=== PATIENT | male | born 1960 | race African-American/Black ===

== ENCOUNTER 2017-08-02 09:45 | Emergency (ER) | payer BC ==
[~2017-08-02] VITALS: Ht 180.3 cm; Wt 101.6 kg
[2017-08-02 09:55] VITALS: BP_SYST 145
[2017-08-02] MEDS ORDERED: KETOROLAC TROMETHAMINE 60 MG/2 ML VIAL IM ONE (10:15)
[2017-08-02 10:32] LABS: EOSINOPHILS # (AUTO) 0.1 K/uL (0.0-0.4); MONOCYTES # (AUTO) 0.3 K/uL (0.0-1.0)
[2017-08-02 10:35] LABS: BASOPHILS # (AUTO) 0.2 K/uL (0.0-0.2); BASOPHILS % (AUTO) 2.8 % (0.0-2.0); EOSINOPHILS % (AUTO) 1.4 % (0.0-4.0); HEMATOCRIT 43.1 % (36-54); LYMPHOCYTES # (AUTO) 1.3 K/uL (1.0-5.5); LYMPHOCYTES % (AUTO) 19.2 % (20.5-51.5); MEAN CORPUSCULAR HEMOGLOBIN 28 pg (27-31); MEAN CORPUSCULAR HGB CONC 33 % (32-36); MEAN CORPUSCULAR VOLUME 86 fL (79.0-98.0); MONOCYTES % (AUTO) 4.9 % (1.7-9.3); NEUTROPHILS # (AUTO) 5.1 K/uL (1.8-7.7); NEUTROPHILS % (AUTO) 71.7 % (40.0-70.0); PLATELET COUNT (AUTO) 162 K/uL (130-430); RED CELL DISTRIBUTION WIDTH 14.4 % (9.0-15.0)
[2017-08-02 10:44] LABS: ANION GAP 6 (5-15); CALCIUM 9.7 mg/dL (8.4-11.0); CHLORIDE 106 mmol/L (98-107); CREATININE 1.13 mg/dL (0.55-1.30); GLUCOSE 115 mg/dL (70-99); POTASSIUM 3.8 mmol/L (3.5-5.1); SODIUM SERUM 143 mmol/L (136-145); UREA NITROGEN, BLOOD 13 mg/dL (8-21)
[2017-08-02 10:49] LABS: GFR AFRICAN AMERICAN 87 mL/min (>90)
[2017-08-02 10:53] LABS: ALANINE AMINOTRANSFERASE 23 U/L (12-78); ALBUMIN 4.1 g/dL (3.4-4.8); ASPARTATE AMINOTRANSFERASE 16 U/L (10-37); TOTAL BILIRUBIN 0.5 mg/dL (0.0-1.0)
[2017-08-02] MEDS ORDERED: HYDROcodone/ACETAMIN 5-325 MG TAB (NORCO/ VICODIN) PO ONE (11:45)
[2017-08-02 11:48] LABS: BILIRUBIN,URINE NEGATIVE (NEGATIVE); BLOOD, URINE NEGATIVE (NEGATIVE); CLARITY/URINE CLEAR (CLEAR); COLOR,URINE YELLOW (YELLOW); GLUCOSE,URINE NEGATIVE (NEGATIVE); KETONES,URINE NEGATIVE (NEGATIVE); LEUKOCYTE ESTERASE ,URINE NEGATIVE (NEGATIVE); NITRITE, URINE NEGATIVE (NEGATIVE); PH,URINE 5.5 (5.0-8.0); PROTEIN URINE NEGATIVE (NEGATIVE); UROBILINOGEN,URINE 0.2 (0.2-1.0)
[2017-08-02 12:24] VITALS: BP_SYST 132
== END 2017-08-02 12:20 | disposition home or self-care (01) ==
LOC: SED 09:45
DX: M54.30 Sciatica, unspecified side (principal); R03.0 Elevated blood-pressure reading, without diagnosis of hypertension; Z90.89 Acquired absence of other organs
CPT/HCPCS: 36415; 80053; 81003; 84484; 85025; 96372; 99284; J1885

== ENCOUNTER 2023-07-27 15:25 | Inpatient (IN) | payer BC ==
[~2023-07-27] VITALS: Ht 180.3 cm; Wt 99.8 kg
[2023-07-27 15:34] VITALS: BP_SYST 130; PULSE 94; RESP 18; TEMP 98.5; O2SAT 98
[2023-07-27 16:40] LABS: BILIRUBIN,URINE NEGATIVE (NEGATIVE); BLOOD, URINE NEGATIVE (NEGATIVE); CLARITY/URINE SL CLOUDY (CLEAR); COLOR,URINE YELLOW (YELLOW); GLUCOSE,URINE NEGATIVE (NEGATIVE); KETONES,URINE TRACE (NEGATIVE); LEUKOCYTE ESTERASE ,URINE NEGATIVE (NEGATIVE); NITRITE, URINE NEGATIVE (NEGATIVE); PROTEIN URINE NEGATIVE (NEGATIVE)
[2023-07-27 16:46] LABS: BASOPHILS % (AUTO) 0.7 % (0.0-2.0); EOSINOPHILS # (AUTO) 0.3 K/uL (0.0-0.4); HEMATOCRIT 36.7 % (36-54); HEMOGLOBIN 12.2 g/dL (14.0-18.0); LYMPHOCYTES # (AUTO) 1.5 K/uL (1.0-5.5); LYMPHOCYTES % (AUTO) 27.4 % (20.5-51.5); MEAN CORPUSCULAR HEMOGLOBIN 29 pg (27-31); MEAN CORPUSCULAR HGB CONC 33 % (32-36); MEAN CORPUSCULAR VOLUME 85 fL (79.0-98.0); MONOCYTES # (AUTO) 0.5 K/uL (0.0-1.0); MONOCYTES % (AUTO) 8.6 % (1.7-9.3); NEUTROPHILS # (AUTO) 3.2 K/uL (1.8-7.7); NEUTROPHILS % (AUTO) 58.3 % (40.0-70.0); PLATELET COUNT (AUTO) 149 K/uL (130-430); RED BLOOD CELL COUNT(AUTO) 4.29 MIL/uL (4.2-6.2); RED CELL DISTRIBUTION WIDTH 16.1 % (9.0-15.0); WHITE BLOOD COUNT (AUTO) 5.5 K/uL (4.8-10.8)
[2023-07-27 17:00] LABS: BARBITURATE, URINE NEGATIVE (NEG <=200); BENZODIAZEPINE, URINE NEGATIVE (NEG <=150); CANNABINOID, URINE NEGATIVE (NEG <=50); COCAINE, URINE NEGATIVE (NEG <=150); METHAMPHETAMINES SCREEN,URINE NEGATIVE (NEG <=500); OPIATE, URINE NEGATIVE (NEG <=100); PHENCYCLIDINE SCREEN,URINE NEGATIVE (NEG <=25); URINE AMPHETAMINE NEGATIVE (NEG <=500); URINE METHADONE NEGATIVE (NEG <=200); URINE OXYCODONE SCREEN NEGATIVE (NEG <=100)
[2023-07-27 17:01] LABS: UR TRICYCLIC ANTIDEPRESSANTS POSITIVE (NEG <=300)
[2023-07-27 17:02] LABS: PROTHROMBIN TIME 10.7 SECS (9.5-12.5)
[2023-07-27 17:04] LABS: ALANINE AMINOTRANSFERASE 26 U/L (12-78); ALBUMIN 3.5 g/dL (3.4-4.8); ANION GAP 9 (5-15); ASPARTATE AMINOTRANSFERASE 27 U/L (10-37); CALCIUM 8.5 mg/dL (8.4-11.0); CARBON DIOXIDE 24 mmol/L (23-29); CHLORIDE 109 mmol/L (98-107); CREATININE 1.36 mg/dL (0.55-1.30); GFR AFRICAN AMERICAN 69 mL/min (>90); GLUCOSE 97 mg/dL (74-106); SODIUM SERUM 142 mmol/L (136-145); TOTAL BILIRUBIN 0.5 mg/dL (0.0-1.0); TOTAL PROTEIN, SERUM 7.8 g/dL (6.4-8.3); UREA NITROGEN, BLOOD 11 mg/dL (8-21)
[2023-07-27 17:06] LABS: GFR NON AFRICAN-AMERICAN 57 mL/min (>90)
[2023-07-27 17:07] LABS: BILIRUBIN,DIRECT 0.1 mg/dL (0.0-0.3)
[2023-07-27 17:09] LABS: ALCOHOL, BLOOD < 3 mg/dL (<10)
[2023-07-27] MEDS ORDERED: TOPI50CA5 PO (17:12)
[2023-07-27] MEDS ORDERED: ZOLP6.2539 PO (17:12)
[2023-07-27] MEDS ORDERED: PREG100C55 PO (17:12)
[2023-07-27] MEDS ORDERED: AMLO5TAB92 PO (17:12)
[2023-07-27] MEDS ORDERED: TRAM100T39 PO (17:12)
[2023-07-27] MEDS ORDERED: CITA20TA16 PO (17:12)
[2023-07-27] MEDS ORDERED: BACL10TA PO (17:12)
[2023-07-27] MEDS ORDERED: CITA10TA14 PO (17:12)
[2023-07-27] MEDS ORDERED: iohexoL 350 mgI/mL, 100 ML INFUS..BTL IV ONE (18:53)
[2023-07-27] MEDS: NACL 0.9% 1,000 ML IV ONE (19:44)
[2023-07-27] MEDS: DIPHTH,PERTUSS(ACELL),TET VAC 0.5 ML VIAL (Tdap) I.M. ONE (19:54)
[2023-07-27 23:53] VITALS: BP_SYST 138; PULSE 79; RESP 18; TEMP 98.4; O2SAT 99
[2023-07-28 00:30] VITALS: BP_SYST 116; PULSE 81; RESP 18; TEMP 98.1; O2SAT 98
[2023-07-28] MEDS: PREGABALIN 25 MG CAPSULE (LYRICA) PO SCH (00:55)
[2023-07-28] MEDS: NACL 0.9% 1,000 ML IV SCH (00:55)
[2023-07-28] MEDS: ZOLPIDEM TARTRATE 5 MG TABLET PO SCH (00:55)
[2023-07-28] MEDS: traMADol HCL HCL 50 MG TABLET (ULTRAM) PO PRN ×2 (00:57→13:19)
[2023-07-28 08:00] VITALS: BP_SYST 129; PULSE 78; RESP 16; TEMP 97.6; O2SAT 97
[2023-07-28] MEDS ORDERED: LORazepam 2 MG/ML VIAL IVP PRN (10:30)
[2023-07-28] MEDS ORDERED: ACETAMINOPHEN 325 MG TABLET PO PRN ×2 (10:30→10:45)
[2023-07-28] MEDS ORDERED: NALOXONE HCL 0.4 MG/ML AMP (NARCAN) IVP PRN (10:30)
[2023-07-28] MEDS ORDERED: ONDANSETRON HCL 4 MG/2 ML VIAL IVP PRN (10:30)
[2023-07-28 10:38] LABS: BASOPHILS % (AUTO) 0.7 % (0.0-2.0); EOSINOPHILS # (AUTO) 0.4 K/uL (0.0-0.4); EOSINOPHILS % (AUTO) 8.7 % (0.0-4.0); HEMATOCRIT 35.8 % (36-54); HEMOGLOBIN 11.7 g/dL (14.0-18.0); LYMPHOCYTES # (AUTO) 1.3 K/uL (1.0-5.5); LYMPHOCYTES % (AUTO) 30.6 % (20.5-51.5); MEAN CORPUSCULAR HEMOGLOBIN 28 pg (27-31); MEAN CORPUSCULAR HGB CONC 33 % (32-36); MEAN CORPUSCULAR VOLUME 86 fL (79.0-98.0); MONOCYTES # (AUTO) 0.4 K/uL (0.0-1.0); MONOCYTES % (AUTO) 10.8 % (1.7-9.3); NEUTROPHILS # (AUTO) 2.1 K/uL (1.8-7.7); NEUTROPHILS % (AUTO) 49.2 % (40.0-70.0); PLATELET COUNT (AUTO) 134 K/uL (130-430); RED BLOOD CELL COUNT(AUTO) 4.15 MIL/uL (4.2-6.2); RED CELL DISTRIBUTION WIDTH 16.1 % (9.0-15.0); WHITE BLOOD COUNT (AUTO) 4.2 K/uL (4.8-10.8)
[2023-07-28 10:58] LABS: CREATININE 1.17 mg/dL (0.55-1.30); POTASSIUM 3.7 mmol/L (3.5-5.1); TOTAL BILIRUBIN 0.5 mg/dL (0.0-1.0); TOTAL PROTEIN, SERUM 7.2 g/dL (6.4-8.3)
[2023-07-28] MEDS: CITALOPRAM HYDROBROMIDE 20 MG TABLET PO ONE (12:11)
[2023-07-28] MEDS: BACLOFEN 10 MG TABLET PO SCH (15:22)
[2023-07-28] MEDS: NORMAL SALINE 5 ML DISP.SYRIN IVF SCH (15:23)
[2023-07-28] MEDS: HYDROcodone/ACETAMIN 5-325 MG TAB (NORCO/ VICODIN) PO PRN (17:54)
[2023-07-28 20:05] VITALS: BP_SYST 131; PULSE 72; RESP 16; TEMP 98.2; O2SAT 100
[2023-07-28] MEDS ORDERED: CITALOPRAM HYDROBROMIDE PO SCH (21:00)
[2023-07-28] MEDS: amLODIPine BESYLATE 5 MG TABLET PO SCH (21:22)
[2023-07-29 00:05] VITALS: BP_SYST 103; PULSE 75; RESP 16; TEMP 97.7; O2SAT 98
[2023-07-29 05:41] LABS: BASOPHILS % (AUTO) 0.7 % (0.0-2.0); EOSINOPHILS # (AUTO) 0.4 K/uL (0.0-0.4); EOSINOPHILS % (AUTO) 9.3 % (0.0-4.0); HEMATOCRIT 36.6 % (36-54); LYMPHOCYTES # (AUTO) 1.3 K/uL (1.0-5.5); LYMPHOCYTES % (AUTO) 33.1 % (20.5-51.5); MEAN CORPUSCULAR HEMOGLOBIN 28 pg (27-31); MEAN CORPUSCULAR HGB CONC 33 % (32-36); MEAN CORPUSCULAR VOLUME 85 fL (79.0-98.0); MONOCYTES # (AUTO) 0.4 K/uL (0.0-1.0); MONOCYTES % (AUTO) 9.1 % (1.7-9.3); NEUTROPHILS # (AUTO) 1.9 K/uL (1.8-7.7); NEUTROPHILS % (AUTO) 47.8 % (40.0-70.0); PLATELET COUNT (AUTO) 150 K/uL (130-430); RED BLOOD CELL COUNT(AUTO) 4.28 MIL/uL (4.2-6.2); RED CELL DISTRIBUTION WIDTH 16.2 % (9.0-15.0)
[2023-07-29 06:23] LABS: CALCIUM 8.7 mg/dL (8.4-11.0); CREATININE 1.15 mg/dL (0.55-1.30); POTASSIUM 3.7 mmol/L (3.5-5.1)
[2023-07-29 08:08] VITALS: O2SAT 98
[2023-07-29 08:12] VITALS: BP_SYST 111; PULSE 70; RESP 18; TEMP 97.9; O2SAT 98
[2023-07-29] MEDS: CITALOPRAM HYDROBROMIDE 20 MG TABLET PO SCH (09:02)
[2023-07-29] MEDS: TOPIRAMATE 25 MG TABLET(TOPAMAX) PO SCH (09:03)
[2023-07-29 12:00] VITALS: BP_SYST 121; PULSE 74; RESP 16; TEMP 98.3; O2SAT 97
[2023-07-29] MEDS: NORMAL SALINE 5 ML DISP.SYRIN IVF SCH (14:37)
[2023-07-29 16:00] VITALS: BP_SYST 127; PULSE 76; RESP 14; TEMP 97.9; O2SAT 98
[2023-07-29 17:39] VITALS: BP_SYST 125; PULSE 72; RESP 16; TEMP 98.3; O2SAT 98
== END 2023-07-29 18:45 | disposition home or self-care (01) | DRG 312 ==
LOC: SED 15:25 → STU 20:57
PROVIDERS: ADMIT Preventive Medicine Preventive Medicine/Occupational Environmental Medicine; ATTEND Preventive Medicine Preventive Medicine/Occupational Environmental Medicine
PROC: 4A10X4Z Monitoring of Central Nervous Electrical Activity, External Approach (ICD-10-PCS; principal; 2023-07-28)
DX: R55 Syncope and collapse (principal); I10 Essential (primary) hypertension; D64.9 Anemia, unspecified; D72.819 Decreased white blood cell count, unspecified; G51.0 Bell's palsy; G89.29 Other chronic pain; S09.8XXA Other specified injuries of head, initial encounter; R73.9 Hyperglycemia, unspecified; G40.909 Epilepsy, unspecified, not intractable, without status epilepticus; X58.XXXA Exposure to other specified factors, initial encounter; Y93.89 Activity, other specified; Y92.89 Other specified places as the place of occurrence of the external cause; Y99.8 Other external cause status
CPT/HCPCS: 36415; 70450-TC; 71045; 71275; 72125-TC; 80048; 80053; 80076; 80307; 81001; 81003; 82948; 83605; 84484; 85025; 85379; 85610; 85730; 87040; 87086; 90715; 93306; 93880; 95816; 97110-GP; 97116-GP; 97163-GP; G0378; G0482; Q9967